=== PATIENT | male | born 1965 ===

== ENCOUNTER 2017-02-25 15:51 | Emergency (ER) | payer OTHER ==
--- NOTE | 2017-02-25 17:13 | UC ---
Eye Complaint HPI - HPI Summary HPI Summary: states he has had a left lower eyelid sty x 3 weeks - History of Current Complaint Chief Complaint: UCEye Stated Complaint: EYE SKIN COMPLAINT Time Seen by Provider: 02/25/17 16:59 Hx Obtained From: Patient Onset/Duration: Gradual Onset, Lasting Weeks Timing: Constant Severity Initially: Mild Severity Currently: Moderate Pain Intensity: 2 Pain Scale Used: 0-10 Numeric Location of Injury: Eye Lid (lower) Character: Dull Aggravating Factor(s): Other - touch Alleviating Factor(s): Nothing Associated Signs And Symptoms: Positive: Negative Eyes: 1 - nodular lesion-?chalazion - Allergies/Home Medications Allergies/Adverse Reactions: Allergies Allergy/AdvReac Type Severity Reaction Status Date / Time No Known Allergies Allergy Verified 02/25/17 16:08 Home Medications: Home Medications Insulin GLARGINE(*) [Lantus(*)] 1 dose IM DAILY 02/25/17 [History Confirmed ] PMH/Surg Hx/FS Hx/Imm Hx Previously Healthy: Yes Endocrine History: Diabetes - Surgical History Surgical History: None - Family History Known Family History: Positive: Hypertension, Diabetes - Social History Alcohol Use: Rare Substance Use Type: None Smoking Status (MU): Former Smoker Review of Systems Constitutional: Negative Skin: Negative Eyes: Negative ENT: Negative Respiratory: Negative Cardiovascular: Negative Gastrointestinal: Negative Genitourinary: Negative Motor: Negative Neurovascular: Negative Musculoskeletal: Negative Neurological: Negative Psychological: Negative Is Patient Immunocompromised?: No All Other Systems Reviewed And Are Negative: Yes Physical Exam Triage Information Reviewed: Yes Appearance: Well-Appearing, No Pain Distress, Well-Nourished Vital Signs: Initial Vital Signs Temp 97.3 F 02/25/17 16:05 Pulse 88 02/25/17 16:05 Resp 12 02/25/17 16:05 BP 113/71 02/25/17 16:05 Pulse Ox 97 02/25/17 16:05 Vital Signs Reviewed: Yes Eyes: Positive: Conjunctiva Clear ENT: Positive: Hearing grossly normal. Negative: Nasal congestion, Nasal drainage, Trismus, Muffled/hoarse voice Neck: Positive: Supple Respiratory: Positive: Lungs clear, Normal breath sounds, No respiratory distress, No accessory muscle use Cardiovascular: Positive: RRR, No Murmur Musculoskeletal: Positive: ROM Intact, No Edema Neurological: Positive: Alert Psychological Exam: Normal Skin Exam: Normal Eye Complaint Course/Dx - Differential Dx/Diagnosis Provider Diagnoses: left lower eye lid lesion. ?chalazion vs other Discharge - Discharge Plan Condition: Stable Disposition: HOME Prescriptions: Cephalexin CAP* [Keflex 500 CAP*] 500 mg PO QID #28 cap Erythromycin OPHTH.OINT* [Ilotycin OPHTH.OINT*] 1 applic LEFT EYE QID #1 ophth.oint Patient Education Materials: Anton (ED) Referrals: Augustine Armando MD [Medical Doctor] - As Soon As Possible Additional Instructions: warm compresses try to get in to see the eye doctor this week
== END 2017-02-25 17:21 | disposition home or self-care (01) ==
LOC: UCEAST 15:51
DX: H00.15 Chalazion left lower eyelid (principal); E11.9 Type 2 diabetes mellitus without complications; Z87.891 Personal history of nicotine dependence
CPT/HCPCS: 99202; G0463